=== PATIENT | male | born 1950 | race Caucasian/White ===

== ENCOUNTER 2017-01-03 11:38 | Inpatient (IN) ==
--- NOTE | 2017-01-03 11:52 | EKG Report ---
Test Performed on : 01/03/2017 11:49:27 AM Test Reason : low hr Blood Pressure : / mmHG Vent. Rate : 039 BPM Atrial Rate : 039 BPM P-R Int : 196 ms QRS Dur : 114 ms QT Int : 490 ms P-R-T Axes : 000 073 043 degrees QTc Int : 394 ms Marked sinus bradycardia. Right bundle branch block Abnormal ECG When compared with ECG of 08-MAR-2016 15:09, Sinus rhythm. has replaced Ectopic atrial rhythm. Unconfirmed Result
[2017-01-03] MEDS ORDERED: NS 1,000 ML IV ONE (11:58)
--- NOTE | 2017-01-03 12:26 | Diag Imaging Result Doc PS360 ---
CHEST-PORTABLE - 01/03/2017 INDICATION: Bradycardia COMPARISON: 06/21/2015 FINDINGS: The lungs are normally expanded and clear. Heart size and mediastinal contours are normal. No pneumothorax or pleural effusion. IMPRESSION: Negative exam. Electronically signed by Adelso Eli 01/03/2017 12:24 PM
[2017-01-03 12:42] LABS: MANUAL DIFF NEEDED? NO
[2017-01-03 12:48] LABS: URINE MICRO REVIEW NEEDED? NO; URINE SOURCE CLEAN CATCH
[2017-01-03 12:52] LABS: BILIRUBIN URINE NEGATIVE (NEGATIVE); BLOOD URINE MODERATE (NEGATIVE); COLOR YELLOW; GLUCOSE URINE >1000 mg/dL (NEGATIVE); LEUKOCYTES URINE LARGE (NEGATIVE); NITRITE URINE NEGATIVE (NEGATIVE); PH URINE 5.5; PROTEIN URINE 30 mg/dL (NEGATIVE); SP GRAVITY URINE 1.016; TURBIDITY URINE HAZY (CLEAR); UROBILINOGEN URINE NORMAL (NORMAL)
[2017-01-03 12:53] LABS: UR EPITHELIAL CELLS <10 /HPF (<10); URINE BACTERIA NEGATIVE /HPF; URINE CULTURE NEEDED? YES; URINE RBC TNTC /HPF (<10); URINE WBC TNTC /HPF (<10)
[2017-01-03 12:58] LABS: BASO% 1.3 % (0.0-0.8); EOS# 0.36 X1000 (0.0-0.7); EOS% 3.9 % (0.0-10.0); HEMATOCRIT 42.2 % (42.0-52.0); HEMOGLOBIN 13.8 g/dL (14.0-18.0); LYMPH# 2.83 X1000 (1.2-3.4); MCH 29.1 PG (27-31); MCHC 32.7 g/dL (33-37); MCV 88.8 FL (81-99); MONO# 0.52 X1000 (0.11-0.59); MONO% 5.7 % (1.7-9.3); MPV 11.6 FL (7.4-10.4); NEUT% 58.1 % (42.2-75.2); PLT 207 X1000 (130-400); RBC 4.75 XMIL (4.7-6.1)
[2017-01-03 13:00] LABS: INR 0.99; PROTIME 10.4 Seconds (9.2-11.7); PTT 29.2 Seconds (22.0-36.0)
[2017-01-03 13:18] LABS: ALBUMIN 3.7 g/dL (3.5-5.0); CALCIUM 9.1 mg/dL (8.8-10.2); POTASSIUM 5.2 mmol/L (3.5-5.1); TOTAL BILIRUBIN 0.27 mg/dL (0.20-1.00); TOTAL PROTEIN 7.7 g/dL (6.3-8.3)
[2017-01-03] MEDS ORDERED: ROCEPHIN 1 GM/NS 1 GM/50 ML IVPB IV ONE (13:29)
--- NOTE | 2017-01-03 14:01 | PROVIDER DOCUMENTATION ---
This chart was entered by Analisa Skelton Scribe, acting as scribe for Vivian Norton MD. HPI-General Adult - General Chief Complaint: Abnormal Lab[s] Stated Complaint: LOW HEART RATE Time Seen by Provider: 01/03/17 11:54 Source: patient Allergies/Adverse Reactions: Patient Allergies Allergy/AdvReac Type Severity Reaction Status Date / Time No Known Allergies Allergy Verified 01/03/17 12:04 Home Medications: Home Medication List Medication Instructions Recorded Confirmed Last Taken Type Metoprolol Tartrate 50 mg PO HS 05/21/12 01/03/17 01/02/17 History Omeprazole Magnesium [Prilosec Otc] 20 mg PO DAILY 05/21/12 01/03/17 01/02/17 History Simvastatin 40 mg PO HS 05/21/12 01/03/17 01/02/17 History Oxycodone HCl 15 mg PO 4XDAY 06/21/15 01/03/17 01/02/17 History Gabapentin 400 mg PO TID 04/30/16 01/03/17 01/02/17 History Saxagliptin HCl/Metformin HCl 1 each PO DAILY 04/30/16 01/03/17 01/02/17 History [Kombiglyze Xr 2.5-1,000 mg Tab] Tizanidine [Zanaflex] 4 mg PO TID 04/30/16 01/03/17 01/02/17 History Clopidogrel Bisulfate [Clopidogrel] 75 mg PO DAILY 01/03/17 01/03/17 08/30/16 History Trazodone HCl [Trazodone HCl] 100 mg PO DAILY 01/03/17 01/03/17 01/02/17 History - History of Present Illness -Gen Adult Nature of Presenting Problems: 66 yo WM presents to ED with cc of bradycardia. Pt has hx of kidney cancer and is awaiting L kidney removal. Pt denies any chest pain. Pt reports he does have sciatic pain, which is treated with pain medication but he is in pain right now. Upon arrival to ED, pt is in no apparent distress. He appears in good spirits. Location of Pain/Injury: reports: back (hx sciatica), lower extremity (hx sciatica) Quality of Pain: reports: burning Severity: reports: mild Onset/Duration: reports: unsure Timing: reports: still present Context/Activities at Onset: reports: none Modifying Factors: improves with: nothing Associated Symptoms: denies: chest pain, cough, diaphoresis, dizziness, nausea, shortness of breath, syncope, weakness Similar Symptoms Previously?: No Recently seen or treated by another doctor?: Yes (Pt was sent here because of bradycardia) Review of Systems - Adult - REVIEW OF SYSTEMS - ADULT Constitutional: reports: no symptoms reported. denies: chills, fever Eyes: reports: no symptoms reported. denies: discharge, blurred vision Ears, Nose, Mouth & Throat: reports: no symptoms reported. denies: ear pain, nose pain Cardiovascular: reports: other (low heart rate). denies: chest pain, palpitations Respiratory: reports: no symptoms reported. denies: dyspnea on exertion, shortness of breath Gastrointestinal: reports: no symptoms reported. denies: abdominal pain, nausea , vomiting Genitourinary: reports: no symptoms reported. denies: dysuria, flank pain Musculoskeletal: reports: no symptoms reported. denies: joint pain, joint swelling Integumentary: reports: no symptoms reported. denies: hives, itching Neurological: reports: no symptoms reported. denies: dizziness/vertigo, numbness, syncope Psychiatric: reports: no symptoms reported. denies: anxiety, depression Endocrine: reports: no symptoms reported. denies: cold intolerance, heat intolerance Hematologic/Lymphatic: reports: no symptoms reported. denies: blood clots, low blood count Allergic/Immunologic: reports: no symptoms reported. denies: allergic reactions , eczema All Other Systems: Reviewed and Negative Past History - Adult - PAST MEDICAL HISTORY-ADULT Review of Records: reports: Old Records Reviewed, Nursing Assessment Review, Medications Reviewed Major Childhood Illnesses: reports: denies history Cardiovascular: reports: CAD, HTN, hyperlipidemia Gastrointestinal: reports: cancer (colon) Genitourinary: reports: cancer (bladder) Endocrine/Immune: reports: Diabetes - PRIOR SURGERIES/PROCEDURES Surgical/Procedure History: reports: appendectomy, cardiac stent, bowel surgery (resection) - IMMUNIZATION STATUS Childhood Immunizations: See Nurse Assessment Flu Vaccine: See Nurse Assessment Physical Exam-General - PHYSICAL EXAM-ADULT Initial Vital Signs Reviewed: Yes - CONSTITUTIONAL General Appearance: appears well, alert, no apparent distress - EYES Eyes: PERRL/EOMI, pink conjunctivae - HEAD, EARS, NOSE, MOUTH & THROAT HENMT: normocephalic/atraumatic, moist mucous membranes - NECK Neck: non-tender, full range of motion, supple - RESPIRATORY Respiratory: chest non-tender, lungs clear, normal breath sounds - CARDIOVASCULAR Cardiovascular: normal peripheral pulses, regular rate, rhythm - GASTROINTESTINAL (ABDOMEN) Abdominal Exam: normal bowel sounds, non tender, soft - LYMPHATIC Lymphatic: no adenopathy - MUSCULOSKELETAL Back Exam: normal inspection Extremity: normal range of motion, non-tender, normal gait - SKIN Integumentary: normal color, normal turgor, warm/dry - NEUROLOGIC Neurologic: grossly normal, no motor/sensory deficits - PSYCHIATRIC Psych/Mental Status: normal mood/affect, normal thought content, normal thought process, oriented x 3 Progress - PLAN OF CARE/RESULTS Progress/Plan/Lab Results: Vital Signs - 8 hr 01/03/17 11:46 Temperature 97.6 F Pulse Rate 43 L Respiratory Rate 18 Blood Pressure 139/58 O2 Sat by Pulse Oximetry 99 Orders Category Date Time Status Cardiac Monitoring DIRECTED Care 01/03/17 11:58 Active Saline Loc NOW Care 01/03/17 11:58 Active CHEST-PORTABLE [RAD] Stat Exams 01/03/17 11:58 Ordered CBC WITH ELECTRONIC DIFF [HEME] Stat Lab 01/03/17 11:58 Ordered CK PROFILE [SP CHEM] Stat Lab 01/03/17 11:58 Ordered COMPREHENSIVE METABOLIC PANEL [CHEM] Stat Lab 01/03/17 11:58 Ordered MAGNESIUM [CHEM] Stat Lab 01/03/17 11:58 Ordered PRO B-NATRIURETIC PEPTIDE Stat Lab 01/03/17 11:58 Ordered PROTIME WITH INR [COAG] Stat Lab 01/03/17 11:58 Ordered PTT [COAG] Stat Lab 01/03/17 11:58 Ordered TROPONIN T Stat Lab 01/03/17 11:58 Ordered UA NIMS W/REFLEX CULT [URINALYSIS] Stat Lab 01/03/17 11:58 Uncollected 0.9% Sodium Chloride Inj [Ns] 1,000 ml Med 01/03/17 11:58 Active IV 150 mls/hr EKG [EKG] Stat Ther 01/03/17 11:44 Draft Result Diagrams: 01/03/17 12:00 01/03/17 12:00 - REASSESSMENT Reassessment #1 Time Reassessed: 13:54 Status: other (Pt is asymptomatic, but HR=30s-40s. Will admit to [facility] for his kidney caner surgery which is scheduled on next Saturday. Pt is on Metoprolol 50mg PO daily.) - XRAY 1 XRAY Study: Chest Impression: Normal - CONSULTS/PCP/HOSPITALIST Notification Time Discussed: 14:01 Reason/Comments: Admit to hospitalist Consult Disposition: Admit Departure - Departure Time of Disposition Decision: 13:57 DIAGNOSIS: Bradycardia UTI (urinary tract infection) Qualifiers: Urinary tract infection type: acute cystitis Hematuria presence: without hematuria Qualified Code(s): N30.00 - Acute cystitis without hematuria Disposition: ADMITTED INPATIENT 09 Certified Medical Emergency: Emergent Condition: Stable Referrals and Follow-Ups: None,PCP [Primary Care Provider] - - Critical Care Note This patient required my direct & personal management of CC.: No Attestation - Physician/ DIMA Attestation Patient care was provided by Advanced Practice Provider:: No This chart was documented by the indicated scribe, (Analisa Skelton Scribtanika) and accurately reflects the services I performed and decisions made by me, Vivian Norton MD, as attested by the provider's signature.
[2017-01-03] MEDS ORDERED: CALCIUM GLUCONATE 1 GM in NS 50 ML IV ONE (14:30)
[2017-01-03 15:10] LABS: FREE T4 1.22 ng/dL (0.93-1.70)
--- NOTE | 2017-01-03 15:56 | HISTORY AND PHYSICAL ---
CHIEF COMPLAINT: Bradycardia. HISTORY OF PRESENT ILLNESS: Mr. Long is a 66-year-old, male, with a history of colon cancer, bladder cancer, and now renal cell carcinoma who is scheduled to have a left nephrectomy on Saturday by Dr. Donnelly. He came to preop today for standard preoperative evaluation. When his vitals were checked, his heart rate was noted to be in the low 40s. The patient denies any chest pain, shortness of breath, palpitations. No presyncope or syncope. He has had no lower extremity edema or orthopnea. In fact, he has been asymptomatic. His only real complaint is of his chronic hip pain. He came to the ER for evaluation. His initial EKG shows marked bradycardia at 40 beats a minute. There are nonspecific ST and T changes but nothing acute. His initial cardiac enzymes are negative, but he is noted to be acidotic and mildly hyperkalemic as well as hyponatremic. Urine shows urinary tract infection. Chest x-ray is negative. Currently, he is stable, resting comfortably in bed in the ER. He will be transferred to the CICU for further treatment and evaluation. PAST MEDICAL HISTORY: 1. Colon cancer. 2. Bladder cancer. 3. Renal cell carcinoma. 4. Hypertension. 5. Type 2 diabetes. 6. BPH. 7. Chronic back pain. 8. GERD. SURGICAL HISTORY: He had an appendectomy, partial colectomy, bladder tumor excision. SOCIAL HISTORY: He quit smoking 7 years ago. He is . His is at home. He has grown children. FAMILY HISTORY: Father from lung cancer. Mother from massive [place]. REVIEW OF SYSTEMS: Fourteen-point review of systems obtained and found to be negative with the exception of the HPI. ALLERGIES: No known drug allergies. HOME MEDICATIONS: 1. Clopidogrel 75 mg daily. 2. Neurontin 400 mg p.o. t.i.d. 3. Lopressor 50 mg at bedtime. 4. Omeprazole 20 mg p.o. daily. 5. Oxycodone 15 mg 4 times a day. 6. metformin 1 every day. 7. Simvastatin 40 mg at bedtime. 8. Zanaflex 4 mg three times a day. 9. Trazodone 100 mg daily. PHYSICAL EXAMINATION: VITAL SIGNS: Blood pressure is 143/72, heart rate 43, respiratory rate 15, O2 saturation 98% on room air. Temperature is 97.6 degrees. GENERAL: This is a well-developed, well-nourished, male, lying in the hospital bed in no acute distress. NEUROLOGIC: The patient is awake, alert, and oriented. He follows commands without focal deficits. HEENT: Head atraumatic, normocephalic. Pupils are equal, round, reactive to light. Oral mucosa is moist. Trachea is midline. No JVD or carotid bruits. CHEST: Clear to auscultation bilaterally. CV: Manny, but regular. S1-S2 is noted. No murmurs, gallops, clicks, or rubs. GASTROINTESTINAL: Soft, nondistended, nontender. Bowel sounds are positive. EXTREMITIES: Without edema, clubbing, or cyanosis. Pulses are 1 to 2+ bilaterally. DIAGNOSTIC DATA: Chest x-ray is negative. EKG sinus bradycardia with nonspecific ST and T changes. WBC 9.14, hemoglobin 13.8, hematocrit 42.2, platelet count 207,000. INR 0.99. Sodium 128, potassium 5.2, chloride 94, CO2 of 19. Anion gap 15. BUN 16, creatinine 1.3. Glucose is 233. Calcium is 9.1. Magnesium 2. Bilirubin 0.27. AST 23, ALT 9. Alkaline phosphatase 81, troponin negative. ProBNP 600. Albumin 3.7. TSH 4.36. Free T4 1.22. UA shows extensive urinary tract infection. ASSESSMENT AND PLAN: 1. Asymptomatic bradycardia: We will rule out myocardial infarction with cardiac enzymes. Check an echocardiogram. Discontinue his beta-brock. We will keep him on telemetry. If he does not have any resolution with the discontinuation of his beta blockade, then we will consult Cardiology. We will also give him some calcium gluconate and an amp of sodium bicarb as he is acidotic and mildly hyperkalemic. 2. Hyponatremia: We will check urine studies but likely hypovolemic, so fluid has been started. 3. Renal cell carcinoma: Per Dr. Donnelly, we hope to have the patient cleared from a cardiac standpoint prior to Saturday. 4. Mild renal insufficiency: We will add some IV fluids and check urine studies. 5. Urinary tract infection: Rocephin has been added. 6. Gastroesophageal reflux disease. Continue his omeprazole. 7. Deep vein thrombosis prophylaxis provided with Lovenox. Further recommendations to follow. Dictated by SPENCER Culver for Ken Rodriguez MD cc: SPENCER Culver MD [facility]. Hughes, MD [facility]
[2017-01-03] MEDS: ZANAFLEX PO SCH (17:42)
[2017-01-03] MEDS: OXY IR PO SCH ×2 (17:42→20:27)
[2017-01-03 17:47] LABS: UR CREAT RANDOM 137.3 mg/dL (14-26)
[2017-01-03] MEDS: HUMALOG SUBQ SCH ×2 (17:51→20:28)
[2017-01-03] MEDS: NS 1,000 ML IV SCH (20:25)
[2017-01-03] MEDS: NEURONTIN PO SCH (20:26)
[2017-01-03] MEDS: ZOCOR PO SCH (20:28)
[2017-01-04] MEDS: NS 1,000 ML IV SCH ×4 (03:58→23:30)
[2017-01-04 04:03] LABS: HEMOGLOBIN A1C 9.9 % (4.8-6.0)
[2017-01-04 04:11] LABS: CALCIUM 8.8 mg/dL (8.8-10.2); POTASSIUM 4.8 mmol/L (3.5-5.1)
[2017-01-04 04:20] LABS: HEMATOCRIT 36.7 % (42.0-52.0); HEMOGLOBIN 11.7 g/dL (14.0-18.0); MCH 28.7 PG (27-31); MCHC 31.9 g/dL (33-37); MPV 10.9 FL (7.4-10.4); RBC 4.08 XMIL (4.7-6.1)
[2017-01-04] MEDS: HUMALOG SUBQ SCH ×4 (06:22→21:45)
[2017-01-04] MEDS: PRILOSEC PO SCH (06:22)
--- NOTE | 2017-01-04 09:17 | PROGRESS NOTE ---
DATE: 01/04/2017 SUBJECTIVE: The patient is a 66-year-old with history of colon cancer, bladder cancer and now new renal cell carcinoma, scheduled for left nephrectomy this coming Saturday [address] Donnelly. Came in for preop study yesterday, and his vitals were checked. His heart rate was noted to be in the 40s. Patient denies any chest pain, shortness of breath. No presyncope or syncope. He had no lower extremity edema or orthopnea. He has been asymptomatic and he drove himself over here. EKG shows sinus bradycardia with rate of 40 beats per minute. There are nonspecific ST and T-wave segments but no chest pain. PAST MEDICAL HISTORY: 1. Colon cancer. 2. Bladder cancer. 3. Renal cell cancer. 4. Hypertension. 5. Type 2 diabetes. 6. Benign prostatic hypertrophy. 7. Chronic back pain. 8. Gastroesophageal reflux disease. OBJECTIVE: Vital Signs: Temperature 98 degrees, pulse 50, respirations 16, blood pressure 122/60. HEENT: Pupils were equal, round. Lungs: Clear in all lung [place]. Cardiovascular: Regular rhythm and rate without murmur or S3. Abdomen: Soft. Skin is warm and dry. Good urine output at 3800 mL. LAB: White count 8870, hematocrit 36, platelet count 205,000. Chemistry: Sodium 138, potassium 4.8, chloride 101, BUN 19, creatinine 1.5. Hemoglobin A1c was 9.9, blood sugar was 160. ASSESSMENT AND PLAN: 1. Asymptomatic bradycardia. No sign of cardiac ischemia. I discontinued his beta blockers. Watch him on telemetry. [place] he might be a little volume depleted. I gave him some IV fluids. 2. Hyponatremia but appears to be a little bit hypovolemia, so will give him some normal saline. His lab this morning, sodium 138, which looks good. Creatinine 1.5. I think his baseline creatinine is probably 0.9 or 1.1, so will give him a little bit of fluid. His sodium is 138 as I stated. So, continue present orders. If his heart rate comes up and blood pressure is good, he may be able to go home. If we are still working on his heart rate and blood pressure, we may keep him through the weekend in preparation for his surgery on Saturday. Blood pressures looked good though right now at 122-144/60. Good urine output. 3. Diabetes mellitus type 2. We will follow his blood sugars. cc: Festus Drummond MD
[2017-01-04] MEDS: PLAVIX PO SCH (09:48)
[2017-01-04] MEDS: NEURONTIN PO SCH ×3 (09:48→16:42)
[2017-01-04] MEDS: ZANAFLEX PO SCH ×3 (09:48→16:42)
[2017-01-04] MEDS: OXY IR PO SCH ×4 (09:48→21:45)
[2017-01-04] MEDS: LOVENOX SUBQ SCH (09:48)
--- NOTE | 2017-01-04 17:08 | CONSULTATION ---
DATE OF CONSULTATION: 01/04/2017 INDICATION: Bradycardia history. HISTORY OF PRESENT ILLNESS: Mr. Long is a 66-year-old white male who follows with Dr. Morgan Malhotra in [place], [place] for his cardiology issues. He reports PCI in the past as well as peripheral arterial disease. He presented to outpatient surgery yesterday for his preop evaluation for upcoming nephrectomy secondary to renal cell carcinoma. He was noted to have heart rates in the 40s and was admitted. He denies any chest pain, shortness of breath, lightheadedness, dizziness or syncopal episodes. He has not had any orthopnea. He has been on Toprol at home and has not had any medication changes including cessation, addition of medications or increasing of medication doses. PAST MEDICAL HISTORY: Significant for. 1. Colon cancer. 2. Bladder cancer. 3. Renal cell carcinoma. 4. Hypertension. 5. Type 2 diabetes. 6. BPH. 7. Chronic back pain. 8. Reflux disease. 9. Some history of coronary disease as well as peripheral arterial disease which we have incomplete records of. SOCIAL HISTORY: He quit smoking 7 years ago. He is . is not present in the room. FAMILY HISTORY: Significant for father passing away from lung cancer, mother passing away of an [place]. REVIEW OF SYSTEMS: A 10 system review of systems is negative except for those things mentioned in HPI. PHYSICAL EXAMINATION: Vital signs: He is afebrile. His heart rates have been predominantly in the 40s to 50s. This seems to be consistent with some records of slow heart rates previously. Blood pressure 120/61. General: No acute distress. HEENT: Oropharynx is moist. Poor dentition. Eye examination shows pink conjunctivae, white sclerae. Neck: Examination shows no obvious thyromegaly or thyroid tenderness. Cardiovascular: He is in a regular rate and rhythm. No obvious murmurs. He has no S3 . He has no S4. No lower extremity edema. Chest: Exam is clear to auscultation bilaterally. No increased work of breathing. Abdomen: Soft, nontender, nondistended. No obvious organomegaly. Skin Exam: Warm and dry throughout without any rashes. Neurological: Moving all extremities well. Cranial nerves 2-12 are intact without any sensation deficits. Psychiatric: Alert, oriented, pleasant. Normal mood and affect . PERTINENT DATA: EKG on the shows sinus rhythm, rate of 39 beats per minute. No signs of acute block . No signs of first-degree AV block. He had a chest x-ray performed demonstrating a negative study. Laboratory data showed a white count 8.8, hematocrit 36.7, platelet count 205,000. Sodium 138, potassium 4.8, BUN 19, creatinine 1.5. His cardiac enzymes have been negative. His TSH is slightly high at 4.36. ASSESSMENT: 1. Asymptomatic bradycardia. 2. Renal cell carcinoma. PLAN: Echo is currently pending. We will request records from Dr. Morgan Malhotra's office. I agree with cessation of the beta-brock. We will continue to follow with you. cc: Chandler Kee MD
--- NOTE | 2017-01-04 17:56 | ECHO REPORT ---
ORDER DATE: 01/03/2017 MEASUREMENTS: Left ventricular end-diastolic diameter 4.1, systolic diameter 2.5, posterior wall thickness 1.2, septal thickness 1.4, left atrium 4.3, aortic root 3.0. SUMMARY: 1. Fair quality study. 2. Aortic valve is trileaflet and opens normally on 2-dimensional images with peak gradient less than 10 mmHg. Mitral, tricuspid and pulmonic valves are without structural abnormality with trace mitral regurgitation, trace tricuspid regurgitation and trace pulmonic insufficiency. Aortic root is normal size. 3. Normal left ventricular chamber size with mild concentric left hypertrophy suggested. Estimated left ejection fraction appears to be at least 55%. No regional wall motion abnormalities are evident. Left atrium is mildly enlarged. Right atrium, right ventricle normal size with normal right ventricular systolic function. 4. No pericardial effusion. 5. Appearance of inferior vena cava suggests normal central venous pressure. CONCLUSIONS: 1. Fair quality study. 2. No significant valvular abnormality evident. 3. Estimated left ejection fraction at least 55%. 4. Mild left atrial enlargement. cc: MD William Pink CRNP
[2017-01-04] MEDS: DESYREL PO SCH (21:45)
[2017-01-04] MEDS: ZOCOR PO SCH (21:45)
[2017-01-05] MEDS: NS 1,000 ML IV SCH ×3 (05:44→20:30)
[2017-01-05 05:47] LABS: HEMATOCRIT 35.6 % (42.0-52.0); HEMOGLOBIN 11.4 g/dL (14.0-18.0); MCV 90.6 FL (81-99); MPV 11.3 FL (7.4-10.4); RBC 3.93 XMIL (4.7-6.1)
[2017-01-05] MEDS: PRILOSEC PO SCH ×2 (05:55→06:48)
[2017-01-05 06:29] LABS: CALCIUM 8.6 mg/dL (8.8-10.2); POTASSIUM 4.8 mmol/L (3.5-5.1)
[2017-01-05] MEDS: HUMALOG SUBQ SCH ×4 (06:48→20:29)
[2017-01-05] MEDS: LOVENOX SUBQ SCH (08:34)
[2017-01-05] MEDS: NEURONTIN PO SCH ×3 (08:34→20:40)
[2017-01-05] MEDS: PLAVIX PO SCH (08:34)
[2017-01-05] MEDS: OXY IR PO SCH ×4 (08:34→22:51)
[2017-01-05] MEDS: ZANAFLEX PO SCH ×3 (08:34→17:34)
--- NOTE | 2017-01-05 13:04 | PROGRESS NOTE ---
DATE: 01/05/2017 SUBJECTIVE: Mr. Long has no complaints. He has no chest pain. He has no shortness of breath. PHYSICAL EXAMINATION: He is afebrile. Heart rate of 51. His heart rates have ranged anywhere from 48-90 over what appears to be the last roughly 12-24 hours. His blood pressure is 108/48. General: He is in no acute distress. Cardiovascular: He is in a regular rate and rhythm. Telemetry currently shows his heart rate is around 60 beats per minute. Chest: Exam is clear bilaterally. He has no increased work of breathing. Abdomen: Soft, nontender, nondistended. He has no obvious organomegaly. Skin Exam: Warm and dry throughout. PERTINENT DATA: White count 7.7, hematocrit 35.6, platelet count 196,000. Sodium 141, potassium 4.8. BUN 18, creatinine 1.5. ASSESSMENT: Asymptomatic bradycardia. PLAN: I agree with cessation of the beta-brock. The patient did receive a dose of Plavix this morning. Likely his surgery for Saturday will have to be delayed secondary to this. I am okay with the patient being discharged home and following up with his primary sheet metal work furnace installer in the future. cc: Chandler Kee MD
[2017-01-05] MEDS ORDERED: NEURONTIN PO SCH (14:00)
--- NOTE | 2017-01-05 14:56 | PROGRESS NOTE ---
DATE: 01/05/2017 Today Mr. Long referred to be doing okay. He continues to be completely asymptomatic. OBJECTIVE: Vital signs: Blood pressure is 165/59, pulse is 60, respiration is 18, temperature 97.5 degrees. General: Mr. Long is a 66-year-old male. He is in bed, no seemingly distress. HEENT: Mucosa is pink and moist. Anicteric. Acyanotic. Neck: Supple. Chest: Good air entry bilateral. Abdomen: Soft. There is an old mid anterior wall abdominal surgical scar. REGIONAL DIRECTOR: Patient is alert and oriented x4. Extremities: No pedal edema. LABORATORY DATA: WBC 7.69, hemoglobin is 11.4, platelet count of 196,000. Chemistries also reviewed. Creatinine is 1.5 which is almost as yesterday. CURRENT MEDICATIONS INCLUDE: 1. Gabapentin. 2. Insulin lispro. 3. OxyContin. 4. Simvastatin. 5. Normal saline at 100 mL/h. 6. Zanaflex. 7. Trazodone. Urine culture has been no growth. ASSESSMENT: 1. Left pelvic noninvasive urothelial carcinoma. Patient is pending left nephrectomy hopefully on Saturday. We are going to discontinue for now the Plavix and anticoagulation and all the other anticoagulation in anticipation for surgery. 2. Asymptomatic bradycardia. We think this was related to the use of a beta brock. This has been discontinued. Heart rate has improved a little bit. 3. Hyperkalemia, improved. 4. Acute kidney injury likely due to volume depletion. Will continue with gentle IV fluids and repeat his labs for tomorrow morning. 5. History of coronary artery disease and peripheral vascular disease. Patient has had cardiac stent and also iliac stents in the past. That is the reason why he is on Plavix and statin. For now we will continue with the statin. We will withhold the Plavix in anticipation of surgery on Saturday. 6. Mild congestive heart failure. Ejection fraction is 55% with an echo showing mild concentric hypertrophic cardiomyopathy. The patient is currently not in any exacerbation. cc: Ken Rodriguez MD
[2017-01-05] MEDS: ZOCOR PO SCH (20:32)
[2017-01-05] MEDS: DESYREL PO SCH (20:32)
[2017-01-06] MEDS: NS 1,000 ML IV SCH ×3 (04:13→07:14)
[2017-01-06 05:32] LABS: HEMATOCRIT 35.7 % (42.0-52.0); HEMOGLOBIN 11.9 g/dL (14.0-18.0); MCH 29.8 PG (27-31); MCHC 33.3 g/dL (33-37); MCV 89.5 FL (81-99); MPV 11.2 FL (7.4-10.4); RBC 3.99 XMIL (4.7-6.1)
[2017-01-06] MEDS: HUMALOG SUBQ SCH ×2 (06:01→10:29)
[2017-01-06] MEDS: PRILOSEC PO SCH (06:07)
[2017-01-06 06:08] LABS: CALCIUM 8.5 mg/dL (8.8-10.2); POTASSIUM 4.6 mmol/L (3.5-5.1)
[2017-01-06] MEDS ORDERED: OXY IR ONE (09:36)
[2017-01-06] MEDS: ZANAFLEX PO SCH ×3 (09:40→14:09)
[2017-01-06] MEDS: OXY IR PO SCH ×2 (09:40→13:52)
[2017-01-06] MEDS: NEURONTIN PO SCH ×2 (09:40→13:51)
[2017-01-06 09:43] LABS: CALCIUM 8.6 mg/dL (8.8-10.2); POTASSIUM 4.5 mmol/L (3.5-5.1)
[2017-01-06 11:37] VITALS: BP 155/67
--- NOTE | 2017-01-06 13:46 | PROGRESS NOTE ---
DATE: 01/06/2017 SUBJECTIVE: Mr. Long has not any problems overnight. No heart racing. No syncopal episodes. PHYSICAL EXAMINATION: Vital signs: His heart rate seems to be running in the 50s to 90s. He is afebrile. Blood pressure 155/67. General: In no acute distress. Cardiovascular: He is in a regular rate and rhythm. He has no obvious murmurs. Currently during my examination, his heart rates are in the 80s to 90s in sinus. Chest: Clear bilaterally. No increased work of breathing. Abdomen: Soft, nontender, nondistended. He has no obvious organomegaly. Skin Exam: Warm and dry throughout without any rashes PERTINENT DATA: White count 7.5, hematocrit 35.7, platelet count 195,000. Sodium 139, potassium 4.5, his BUN is 16, creatinine is 1.3. ASSESSMENT: Relative bradycardia. PLAN: Patient's P2Y12 assay shows a PRU of roughly 80. I would not recommend operating on the patient until it is above 200. Considering this, he is okay to go home from a cardiac standpoint. I would just continue with hold the beta brock. He has been instructed to follow up with Dr. Malhotra, his primary quality assurance inspector in [place]. cc: Chandler Kee MD
--- NOTE | 2017-01-06 15:01 | PROGRESS NOTE ---
DATE: 01/06/2017 SUBJECTIVE: Today Mr. Long refers to be doing a whole lot better. Denies any acute complaints. OBJECTIVE: Vital signs: Blood pressure is 145/71, pulse is 73, respirations 14, temperature 98.1 degrees. General: Mr. Long is a 66-year-old male. He is in bed, not seemingly distress. HEENT: Mucosa is pink and moist. Anicteric. Acyanotic. Neck: Supple. Chest: Good air entry bilaterally. No crepitations. No rhonchi. Cardiovascular: Regular rate and rhythm. No murmurs. Abdomen: Soft, nontender. There is an old midanterior wall surgical scar. CHANNEL CEMENTER: The patient is alert and oriented x4. There is no focal neurological deficit. LABORATORY DATA: WBC 7.54, hemoglobin is 11.9, platelet count of 195,000. Chemistry is reviewed, completely normal, creatinine is down to 1.3 which is improving. ASSESSMENT: 1. Left pelvis noninvasive urothelial carcinoma. Patient is pending surgery. 2. Asymptomatic bradycardia likely due to beta brock induced. This has improved since the medication was discontinued. 3. Hyperkalemia resolved. 4. Acute kidney injury due to volume depletion. Creatinine continues to be improving. 5. History of coronary artery disease and peripheral vascular disease noted. 6. Mild congestive heart failure. Ejection fraction of 55% with mild concentric hypertrophic cardiomyopathy. Patient is currently not showing any signs of congestive heart failure exacerbation. 7. Anti-platelet use. Patient was using clopidogrel because of coronary artery disease and also vascular stents in the iliac. This has been stopped due to anticipation of surgery. I do not think surgery can be done tomorrow because usually would wait 5 days for major surgery like abdominal surgeries. We would wait for urology to review the patient and make a decision. If surgery is not going to be done tomorrow I thing we can safely discharge the patient home and let him come back when urology is ready for the surgery. cc: Ken Rodriguez MD
--- NOTE | 2017-01-07 06:33 | DISCHARGE SUMMARY ---
ADMISSION DATE: 01/03/2017 DISCHARGE DATE: 01/06/2017 DISPOSITION: Disposition to home. FOLLOWUP: 1. Dr. Donnelly. 2. Dr. Kee. CONSULTATION DURING ADMISSION: Cardiology was consulted. Patient was seen by Dr. Kee. INVASIVE PROCEDURES DONE DURING ADMISSION: None. IMAGING STUDIES OF SIGNIFICANCE: An echocardiogram was done which showed nonsignificant valvular abnormality and ejection fraction of 55%. Mild left atrial enlargement. ADMISSION DIAGNOSES: 1. Asymptomatic bradycardia. 2. Hyponatremia. 3. Renal insufficiency. DISCHARGE DIAGNOSES: 1. Left pelvis noninvasive ureteral carcinoma pending surgery. 2. Asymptomatic bradycardia induced by beta brock. 3. Hyperkalemia on presentation resolved. 4. Acute kidney injury due to volume depletion improved. 5. History of coronary artery disease and peripheral vascular disease. 6. Mild congestive heart failure with ejection fraction of 55% with mild concentric hypertrophic cardiomyopathy. 7. Clopidogrel use. DISCHARGE MEDICATIONS: 1. Simvastatin 40 mg daily. 2. Omeprazole 20 mg daily. 3. Gabapentin 400 3 times per day. 4. Sitagliptin with metformin 1 tablet daily. 5. Trazodone 100 mg daily. MEDICATIONS THAT HAS BEEN DISCONTINUED: 1. Clopidogrel 75 mg. Metoprolol have been discontinued. PRESENTING COMPLAINT: Bradycardia. HISTORY OF PRESENT COMPLAINT: The patient is a 66-year-old male who has multiple urological interventions due to ureteral noninvasive carcinoma. Patient is scheduled for left nephrectomy and went for preop evaluation and was found to have severe bradycardia so he was sent to the emergency department for further medical evaluation. At the emergency room, an EKG was done which showed remarkable sinus bradycardia with the rate of 39. He was subsequently admitted for further medical care. HOSPITAL COURSE: The patient was admitted to [facility]. Beta brock was discontinued. He was found dry so IV fluids were also started. Cardiology was consulted. The patient was optimized for surgical intervention, however, because he was on Plavix it was deemed necessary to postpone surgery for a few more days until the anti-platelet effect of the medication is completely cleared out of the blood stream which we anticipated will need more than 5 days. The patient was subsequently discharged with consultation with his urologist and we are all on the same page that patient could be discharged home. He is to stay away from Plavix and metoprolol. Follow up with Dr. Donnelly for further arrangement for his nephrectomy. A P2 Y12 level was ordered by Cardiology and was still pending. The patient will review this test with Dr. Kee on an outpatient basis. At the time of discharge, patient's vitals show blood pressure 155/6, pulse of 90, respirations 13 and temperature is 98.3 degrees. He is clinically stable. He is going to be discharged home. TIME SPENT: Time spent for discharge was 36 minutes. cc: Ken Rodriguez MD MTDD
== END 2017-01-06 14:30 | disposition home or self-care (01) ==
LOC: ED 11:38 → SUATTDRO 15:00 → 3S 15:00
PROVIDERS: ATTEND Internal Medicine

== ENCOUNTER 2017-01-21 02:24 | Inpatient (IN) ==
[2017-01-17 12:09] LABS: HEMATOCRIT 41.2 % (42.0-52.0); HEMOGLOBIN 13.2 g/dL (14.0-18.0); MCH 28.4 PG (27-31); MCV 88.6 FL (81-99); MPV 11.1 FL (7.4-10.4); RBC 4.65 XMIL (4.7-6.1)
[2017-01-17 12:32] LABS: CALCIUM 9.4 mg/dL (8.8-10.2); POTASSIUM 5.2 mmol/L (3.5-5.1)
[2017-01-21] MEDS ORDERED: LR 0 ML ONE (05:40)
[2017-01-21] MEDS ORDERED: KEFZOL 2 GM/D5W 0 GM/0 ML IVPB ONE (05:40)
[2017-01-21] MEDS ORDERED: VANCOMYCIN 1 GM/NS 0 GM/0 ML IVPB ONE (06:29)
[2017-01-21] MEDS ORDERED: LR 1,000 ML ONE (06:43)
[2017-01-21] MEDS ORDERED: MARCAINE 0.25% PF/EPI 1:200,000 ONE (06:43)
[2017-01-21 08:17] LABS: URINE SOURCE CATH
[2017-01-21 08:20] LABS: BILIRUBIN URINE NEGATIVE (NEGATIVE); BLOOD URINE SMALL (NEGATIVE); COLOR YELLOW; GLUCOSE URINE 200 mg/dL (NEGATIVE); LEUKOCYTES URINE LARGE (NEGATIVE); NITRITE URINE NEGATIVE (NEGATIVE); PH URINE 6.5; PROTEIN URINE TRACE mg/dL (NEGATIVE); SP GRAVITY URINE 1.011; TURBIDITY URINE HAZY (CLEAR); UROBILINOGEN URINE NORMAL (NORMAL)
[2017-01-21 08:21] LABS: URINE MICRO REVIEW NEEDED? YES
[2017-01-21 08:52] LABS: UR EPITHELIAL CELLS <10 /HPF (<10); URINE BACTERIA NEGATIVE /HPF; URINE RBC <10 /HPF (<10); URINE WBC TNTC /HPF (<10)
[2017-01-21] MEDS ORDERED: NEOSTIGMINE ONE (13:08)
[2017-01-21] MEDS ORDERED: NORCURON ONE (13:08)
[2017-01-21] MEDS ORDERED: LABETALOL (DOSE) ONE (13:08)
[2017-01-21] MEDS ORDERED: ZOFRAN ONE (13:08)
[2017-01-21] MEDS ORDERED: ROBINUL ONE (13:09)
[2017-01-21] MEDS ORDERED: LR 2,000 ML ONE (13:09)
[2017-01-21] MEDS ORDERED: XYLOCAINE-MPF 2% ONE (13:09)
[2017-01-21] MEDS ORDERED: DECADRON ONE (13:09)
[2017-01-21] MEDS ORDERED: QUELICIN (DOSE) ONE (13:09)
[2017-01-21] MEDS ORDERED: OFIRMEV 1000 MG/ISOTONIC SOLN 1,000 MG/100 ML BOTTLE ONE (13:09)
[2017-01-21] MEDS ORDERED: DIPRIVAN 1% ONE (13:17)
[2017-01-21] MEDS ORDERED: FENTANYL ONE (13:17)
[2017-01-21] MEDS ORDERED: NS 1,000 ML ONE (13:34)
--- NOTE | 2017-01-21 13:46 | OPERATIVE NOTE ---
PROCEDURE DATE: 01/21/2017 PREOPERATIVE DIAGNOSIS: Urothelial carcinoma of the left renal pelvis and left ureter. POSTOPERATIVE DIAGNOSIS: Urothelial carcinoma of the left renal pelvis and left ureter. PROCEDURE PERFORMED: Laparoscopic robot-assisted left nephroureterectomy in a patient that had a previous left ureteral implant. 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 He had cancer in the left distal ureter and underwent left distal ureterectomy with reimplant. The margins of the proximal ureter were clear. On routine followup, he was noted to have recurrence in the bladder. Retrograde pyelogram revealed multiple filling defects in the ureter as well as in the renal pelvis. Biopsies of these revealed urothelial carcinoma. FINDINGS: There were several bowel adhesions that were easily taken down. The patient had significant inflammatory reaction around the ureter and dilated ureter secondary to his previous surgery and probable in a reaction to cancer. The camera port trocar was placed very close to the small bowel. There was a question of injury to the small bowel. A general surgeon explored the bowel after the procedure was completed and no bowel injury was found. DESCRIPTION OF PROCEDURE: After informed consent was obtained from the patient and him receiving IV antibiotics, he was taken to the main OR and placed in the supine position. General endotracheal anesthesia was achieved. He was then placed with the left side up approximately 30 degrees. He was then prepped and draped in the usual sterile fashion for left flank and abdominal surgery. The table was rotated all the way to the patient's left so that he became nearly horizontal to the floor. Robot trocars were placed by 1st achieving pneumoperitoneum with a Veress needle. This was placed through the future camera port. After pneumoperitoneum was achieved, the camera port was placed using the Visiport. The camera was placed and there were several adhesions that would be taken down with the robot instruments. The #1 robot port was placed in the midclavicular line below the level of the umbilicus. The #2 was placed just below the ribcage at the midclavicular line. The 4th arm was placed just above the anterior superior iliac spine. The personal banking assistant port was placed just below the umbilicus. Another robot trocar was placed at the level of the umbilicus in the right lower quadrant since the robot may have to be redocked and the dissection done from below. After the robot trocars were placed, he was rotated to the full flank position with the left side up. The robot was docked. Bowel adhesions were taken down without difficulty. The descending colon was mobilized off the kidney by incising the mesentery along the white line of Toldt and across the anterior surface of the kidney. The splenocolic and splenorenal ligaments were taken down sharply such that the spleen rotated medially. The bowel was completely dissected over to the aorta. The gonadal vein was visualized and dissected up to the renal vein. The tissues were very adherent secondary to inflammatory reaction due to his previous surgery and ureteral cancer. The ureter was visualized. It was seen to be very dilated. The ureter was dissected free of its bed and the ureter was clipped. The renal vein was sharply dissected free of surrounding tissue. A vessel loop was placed around the renal vein. The artery was then dissected free as well and a vessel loop was placed around that. A WAYNE vascular stapler with a 2.2 mm lobe load was placed. First the artery was taken and then the vein was taken. The artery was taken with a 35 length stapler, the vein with a 45 length stapler. After the vasculature was secured, the kidney was bluntly and sharply dissected free of its bed. The ureter was then dissected down to the bladder. The bladder had previously had a psoas hitch. It was distended with 300 mL of water and the robot would not have to be redocked to complete the procedure. The ureter was dissected down to the bladder the bladder muscle was incised and a cone of mucosa was taken. The bladder was reapproximated in 2 layers, first a mucosal and muscle layer, with a running suture of 2-0 Vicryl. This was covered over with the bladder muscle with a running suture of 2-0 Vicryl. The trocars were removed under direct vision. A drain was placed through the fourth robot trocar and placed in the true bony pelvis. Surgicel SNoW was placed around the vascular pedicle of the kidney. The kidney was grasped with the locking grasper through the personal banking assistant port. The robot was undocked and the patient was placed as horizontal as possible a longitudinal incision was made from the personal banking assistant port up to medial to the camera port. The question of bowel injury was at the camera port. The small bowel was explored by the general surgeon (Dr. Long), and there did not appear to be any injury. The kidney with its attached ureter and cuff of bladder was easily removed and sent to Pathology. The rectus fascia at the camera port was closed with a [id number] of 2-0 Vicryl. The abdominal rectus fascia was reapproximated with a #1 Maxon in a running fashion. The subcutaneous tissue was reapproximated with interrupted suture of 3-0 Vicryl. The skin was reapproximated with clips. Island dressings were placed. He tolerated the procedure well. Estimated blood loss was 200 mL. He was taken to the recovery room and extubated in good condition. He will have his Gonzáles catheter for at least 2 weeks. cc: Gm Donnelly MD
[2017-01-21] MEDS ORDERED: B & O 15A SUPP PR PRN (14:31)
[2017-01-21] MEDS ORDERED: LABETALOL IV PRN (14:31)
[2017-01-21] MEDS ORDERED: DITROPAN PO PRN (14:31)
[2017-01-21] MEDS ORDERED: PHENERGAN PO PRN (14:31)
[2017-01-21] MEDS ORDERED: PHENERGAN IV PRN (14:31)
[2017-01-21] MEDS ORDERED: BENADRYL IV PRN (14:31)
[2017-01-21] MEDS ORDERED: PHENERGAN PR PRN (14:31)
[2017-01-21] MEDS ORDERED: SODIUM CHLORIDE 0.9% INJ PRN (14:31)
[2017-01-21] MEDS ORDERED: BENADRYL LIQUID PO PRN (14:31)
[2017-01-21] MEDS: MORPHINE IV PRN ×4 (14:52→23:02)
[2017-01-21] MEDS: KEFZOL 1 GM/D5W 1 GM/50 ML IVPB IV SCH ×2 (14:58→22:55)
[2017-01-21] MEDS: NS 1,000 ML IV SCH ×2 (14:59→23:40)
[2017-01-21] MEDS: HUMULIN R SUBQ SCH ×2 (17:03→20:59)
[2017-01-21] MEDS: OFIRMEV 1000 MG/ISOTONIC SOLN 1,000 MG/100 ML BOTTLE IV SCH ×2 (17:03→23:40)
[2017-01-21] MEDS: OXY IR PO SCH (19:32)
[2017-01-21] MEDS: PRILOSEC PO SCH (20:58)
[2017-01-21] MEDS: PERIDEX MT SCH (20:58)
[2017-01-21] MEDS: DESYREL PO SCH (20:58)
[2017-01-21] MEDS: ZOCOR PO SCH (20:58)
[2017-01-21] MEDS: COLACE PO SCH (20:58)
[2017-01-21] MEDS: PEPCID PO SCH (20:59)
[2017-01-22] MEDS: OXY IR PO SCH ×4 (01:45→21:29)
[2017-01-22] MEDS: HUMULIN R SUBQ SCH ×4 (04:05→21:39)
[2017-01-22] MEDS: OFIRMEV 1000 MG/ISOTONIC SOLN 1,000 MG/100 ML BOTTLE IV SCH (05:13)
[2017-01-22] MEDS: KEFZOL 1 GM/D5W 1 GM/50 ML IVPB IV SCH (06:15)
[2017-01-22] MEDS: MORPHINE IV PRN ×4 (06:29→19:48)
[2017-01-22 06:44] LABS: HEMATOCRIT 38.5 % (42.0-52.0); HEMOGLOBIN 12.6 g/dL (14.0-18.0); MCH 28.9 PG (27-31); MCHC 32.7 g/dL (33-37); MCV 88.3 FL (81-99); MPV 11.4 FL (7.4-10.4); RBC 4.36 XMIL (4.7-6.1)
[2017-01-22 07:01] LABS: CALCIUM 8.3 mg/dL (8.8-10.2); POTASSIUM 4.3 mmol/L (3.5-5.1)
[2017-01-22] MEDS: PEPCID PO SCH ×2 (09:15→21:30)
[2017-01-22] MEDS: COLACE PO SCH ×2 (09:15→21:29)
[2017-01-22] MEDS: ONGLYZA PO SCH (09:15)
[2017-01-22] MEDS: GLUCOPHAGE PO SCH (09:15)
[2017-01-22] MEDS: PERIDEX MT SCH ×2 (09:16→21:29)
[2017-01-22] MEDS: NS 1,000 ML IV SCH ×2 (15:58→21:39)
[2017-01-22] MEDS: NEURONTIN PO SCH (21:29)
[2017-01-22] MEDS: DESYREL PO SCH (21:29)
[2017-01-22] MEDS: PRILOSEC PO SCH (21:29)
[2017-01-22] MEDS: ZOCOR PO SCH (21:29)
[2017-01-22] MEDS: ZANAFLEX PO SCH (21:29)
[2017-01-23] MEDS: OXY IR PO SCH ×2 (03:11→08:59)
[2017-01-23] MEDS: HUMULIN R SUBQ SCH ×2 (03:35→09:30)
[2017-01-23 04:19] LABS: CREATININE BODY FLUID 1.1 mg/dL
[2017-01-23] MEDS: NS 1,000 ML IV SCH (05:35)
[2017-01-23 06:55] LABS: CALCIUM 8.9 mg/dL (8.8-10.2); POTASSIUM 4.3 mmol/L (3.5-5.1)
[2017-01-23] MEDS: ZANAFLEX PO SCH (08:59)
[2017-01-23] MEDS: PEPCID PO SCH (08:59)
[2017-01-23] MEDS: NEURONTIN PO SCH (08:59)
[2017-01-23] MEDS: COLACE PO SCH (08:59)
[2017-01-23] MEDS: ONGLYZA PO SCH (08:59)
[2017-01-23] MEDS: PERIDEX MT SCH (09:00)
[2017-01-23] MEDS: GLUCOPHAGE PO SCH (09:00)
[2017-01-23] MEDS: MORPHINE IV PRN (11:31)
[2017-01-23 12:37] VITALS: BP 127/73
== END 2017-01-23 13:26 | disposition home or self-care (01) ==
LOC: SURHOLD 02:24 → 4N 12:30
PROVIDERS: ADMIT Urology; ATTEND Urology